=== PATIENT | male | born 1960 | race Caucasian/White ===

== ENCOUNTER 2017-01-08 23:55 | Emergency (ER) | payer OTHER ==
[~2017-01-08] VITALS: Ht 175.3 cm; Wt 70.0 kg
[~2017-01-08 23:55] MED LIST: FISH OIL500 MG PO; LEVEMIR FL100 UNIT/1 SC; LIPITOR40 MG PO; LO-DOSE ASPIRIN81 M1 PO; LUBRIDERM DAIL177 ML TP; MOTRIN800 MG PO; NEURONTIN800 MG PO; NITROSTAT0.3 MG SL; NOVOLIN,HU100 UNITS1 SC; PRILOSEC40 MG PO; SYNTHROID300 MCG PO; TUMS DUAL ACTI1 EACH PO; TYLENOL REGULA325 MG PO
[2017-01-09 00:17] LABS: CREATININE 0.6 mg/dL (0.6-1.3); POTASSIUM 3.9 mEq/L (3.7-5.4)
[2017-01-09 00:43] LABS: EOSINOPHIL (%) 2.9 % (0-5); EOSINOPHIL COUNT 0.1 K/uL (0-0.3); HEMATOCRIT 38.9 % (38.0-50.0); IMMATURE GRANULOCYTE (%) 0.2 % (0.0-0.7); INSTRUMENT ABS NEUTROPHIL CT 2.8 K/uL; LYMPHOCYTE COUNT 0.7 K/uL (1.0-2.8); MCH 30.7 PG (29.0-34.0); MCHC 36.5 G/DL (30.0-36.0); MEAN PLAT.VOLUME 10.8 uM^3 (9.0-12.4); MONOCYTE (%) 10.1 % (3-12); MONOCYTE COUNT 0.4 K/uL (0-0.8); NEUTROPHIL (%) 67.9 % (45-76); NEUTROPHIL COUNT 2.8 K/uL (1.8-6.4); PLATELET COUNT 76 K/uL (156-360); RBC DIS.WIDTH-CV 12.8 % (11.8-14.6); RED BLOOD COUNT 4.63 M/uL (4.00-5.50); WHITE BLOOD COUNT 4.1 K/uL (4.1-10.2)
[2017-01-09 00:54] LABS: INTER. NORMALIZED RATIO 1.1; PTT 26.9 (25-32)
[2017-01-09 00:57] LABS: AMYLASE 43 IU/L (1-118); CHLORIDE 105 mEq/L (99-109); POTASSIUM 3.6 mEq/L (3.7-5.4); SODIUM 138 mEq/L (136-147)
[2017-01-09 00:59] LABS: GLUCOSE 231 mg/dL (70-99)
[2017-01-09 01:00] LABS: ANION GAP 10 MEQ/L (2-14)
[2017-01-09 01:02] LABS: SERUM ETHYL ALCOHOL < 10 mg/dL
[2017-01-09 01:03] LABS: GFR ESTIMATE (CALCULATED) > 59 mL/min/
[2017-01-09 01:04] LABS: TROP-I INTERPRETATION NEGATIVE; TROPONIN-I < 0.01 ng/mL (0.0-0.30); UREA NITROGEN (BUN) 11 mg/dL (9-23)
[2017-01-09 01:06] LABS: LIPASE 48 U/L (1.0-51.0)
[2017-01-09 07:55] VITALS: BP 125/72
[2017-01-09 08:09] LABS: POINT-OF-CARE METER ID UU13113702
== END 2017-01-09 08:53 | disposition short-term general hospital (02) ==
LOC: EME → EDBD 23:55 → EME 23:55
PROVIDERS: Emergency Medicine
DX: R29.810 Facial weakness (principal); R20.0 Anesthesia of skin; R25.3 Fasciculation; R53.1 Weakness; R51 Headache; R07.9 Chest pain, unspecified; R13.10 Dysphagia, unspecified; I10 Essential (primary) hypertension; E11.65 Type 2 diabetes mellitus with hyperglycemia; D69.6 Thrombocytopenia, unspecified; I48.91 Unspecified atrial fibrillation; I25.10 Atherosclerotic heart disease of native coronary artery without angina pectoris; Z98.61 Coronary angioplasty status; E78.5 Hyperlipidemia, unspecified; R56.9 Unspecified convulsions; Z87.891 Personal history of nicotine dependence; Z79.4 Long term (current) use of insulin; Z79.82 Long term (current) use of aspirin
CPT/HCPCS: 70450; 70496; 70498; 80047; 80048; 81003; 82150; 82948; 83690; 84484; 85025; 85610; 85730; 86900; 86901; 93005; 99281; 99285; G0480; J2060; J2270